=== PATIENT | female | born 1970 | race Caucasian/White ===

== ENCOUNTER 2017-02-11 13:31 | Emergency (ER) | payer SELFPAY ==
[2015-01-20 06:31] VITALS: BMI 26.5
[~2017-02-11 13:31] MED LIST: HYDROCODONE-APA1 TAB PO; TOPAMAX50 MG PO; VENTOLIN HFA18 GM INH
[2017-02-11 14:33] LABS: BASOPHILS 0.4 % (0-2); EOSINOPHILS 2.6 % (0-7); HEMATOCRIT 37.3 % (36.0-48.0); HEMOGLOBIN 12.8 g/dL (12-16); IMMATURE GRANULOCYTES 0.1 % (0-5); LYMPHOCYTES 30.2 % (15-50); MCHC 34.3 g/dL (31.0-37.0); MCV 90.3 fL (80.0-100.0); MEAN PLATELET VOLUME 9.1 fL (7.4-10.4); MONOCYTES 9.8 % (2-11); NEUTROPHILS 56.9 % (40-80); PLATELET COUNT 240 10x3/uL (130-400); RBC 4.13 10x6/uL (4.00-5.40); RDW 12.7 % (11.5-14.5); WBC 6.8 10x3/uL (4.8-10.8)
[2017-02-11 14:46] LABS: ALBUMIN 3.9 g/dL (3.4-5.0); ALKALINE PHOSPHATASE 58 U/L (46-116); ALT (SGPT) 27 U/L (10-68); BILIRUBIN - TOTAL 0.22 mg/dL (0.2-1.3); CALC OSMOLALITY 280 mosm/kg (275-300); CALCIUM 9.3 mg/dL (8.5-10.1); CARBON DIOXIDE 24.5 mmol/L (21.0-32.0); CHLORIDE - SERUM 106 mmol/L (98-107); CREATININE - SERUM 0.8 mg/dL (0.6-1.3); GLUCOSE 92 mg/dL (74-106); POTASSIUM - SERUM 3.7 mmol/L (3.5-5.1); PROTEIN - SERUM 7.3 g/dL (6.4-8.2); SODIUM 141 mmol/L (136-145); UREA NITROGEN 13 mg/dL (7-18); eGFR NON AFRICAN AMERICAN 82 mL/min (90-120)
[2017-02-11 14:55] LABS: CKMB 0.3 U/L (0.0-3.6); CREATINE KINASE 50 UL (21-215)
[2017-02-11 15:03] LABS: TROPONIN-I < 0.017 ng/mL (0.000-0.060)
== END 2017-02-11 17:32 | disposition home or self-care (01) ==
LOC: D.ER 13:31
PROVIDERS: Emergency Medicine
DX: R09.1 Pleurisy (principal); J06.9 Acute upper respiratory infection, unspecified

== ENCOUNTER → 2018-01-01 19:18 | Outpatient (CLI) | payer OTHER ==
[2015-01-20 06:31] VITALS: BMI 26.5
== END | disposition home or self-care (01) ==
LOC: D.MAMMO 11:00
DX: Z12.31 Encounter for screening mammogram for malignant neoplasm of breast (principal)

== ENCOUNTER 2018-01-02 08:09 | Emergency (ER) | payer OTHER ==
[2015-01-20 06:31] VITALS: BMI 26.5
== END 2018-01-02 10:28 | disposition home or self-care (01) ==
LOC: D.ER 08:09
DX: H53.2 Diplopia (principal); R51 Headache

== ENCOUNTER → 2018-01-27 23:57 | Outpatient (CLI) | payer OTHER ==
[2015-01-20 06:31] VITALS: BMI 26.5
== END | disposition home or self-care (01) ==
LOC: D.MAMMO 14:30
DX: R92.8 Other abnormal and inconclusive findings on diagnostic imaging of breast (principal)

== ENCOUNTER 2019-04-29 15:57 | Emergency (ER) | payer OTHER ==
[~2019-04-29] VITALS: Ht 162.6 cm; Wt 77.3 kg
[2019-04-29 16:00] VITALS: Ht 162.6 cm; Wt 77.3 kg
[2019-04-29] MEDS ORDERED: DICLOFENAC SODI50 MG PO (16:02)
[2019-04-29] MEDS ORDERED: FLOMAX0.4 MG PO (16:02)
[2019-04-29 17:21] LABS: APPEARANCE CLEAR (CLEAR); BILIRUBIN NEGATIVE (NEGATIVE); COLOR YELLOW (YELLOW); GLUCOSE NEGATIVE (NEGATIVE); KETONE NEGATIVE (NEGATIVE); NITRITE NEGATIVE (NEGATIVE); PROTEIN NEGATIVE (NEGATIVE); SPECIFIC GRAVITY 1.025 (1.005-1.020); UROBILINOGEN NORMAL (NORMAL)
[2019-04-29 17:22] LABS: BACTERIA FEW /hpf (NONE SEEN); EPITHELIAL CELLS 0-5 /hpf (0-5); RED CELLS - URINE 0-5 /hpf (0-5); WHITE CELLS - URINE OCC /hpf (0-5)
[2019-04-29 18:01] LABS: BASOPHILS 0.3 % (0-2); EOSINOPHILS 0.9 % (0-7); HEMATOCRIT 39.7 % (36.0-48.0); HEMOGLOBIN 13.8 g/dL (12-16); IMMATURE GRANULOCYTES 0.3 % (0-5); LYMPHOCYTES 26.2 % (15-50); MCH 30.9 pg (26.0-34.0); MCHC 34.8 g/dL (31.0-37.0); MEAN PLATELET VOLUME 8.8 fL (7.4-10.4); MONOCYTES 6.4 % (2-11); NEUTROPHILS 65.9 % (40-80); PLATELET COUNT 266 10x3/uL (130-400); RBC 4.46 10x6/uL (4.00-5.40); RDW 12.9 % (11.5-14.5); WBC 11.1 10x3/uL (4.8-10.8)
[2019-04-29 18:13] LABS: APTT 27.7 SECONDS (22.8-39.4); INR 0.99 (0.85-1.17); PROTIME 12.6 SECONDS (11.6-15.0)
[2019-04-29 18:16] LABS: ALBUMIN 4.2 g/dL (3.4-5.0); ALKALINE PHOSPHATASE 66 U/L (46-116); ALT (SGPT) 34 U/L (10-68); BILIRUBIN - TOTAL 0.52 mg/dL (0.2-1.3); CALC OSMOLALITY 278 mosm/kg (275-300); CALCIUM 9.6 mg/dL (8.5-10.1); CARBON DIOXIDE 28.4 mmol/L (21.0-32.0); CHLORIDE - SERUM 101 mmol/L (98-107); GLUCOSE 103 mg/dL (74-106); PROTEIN - SERUM 7.5 g/dL (6.4-8.2); SODIUM 139 mmol/L (136-145); UREA NITROGEN 14 mg/dL (7-18); eGFR NON AFRICAN AMERICAN 63 mL/min (90-120)
[2019-04-29 18:19] LABS: LIPASE 117 U/L (73-393); TROPONIN-I < 0.017 ng/mL (0.000-0.060)
[2019-04-29 20:21] VITALS: BP 141/88
== END 2019-04-29 20:23 | disposition home or self-care (01) ==
LOC: D.ER 15:57
PROVIDERS: Family Medicine
DX: R10.9 Unspecified abdominal pain (principal); R31.9 Hematuria, unspecified

== ENCOUNTER 2020-02-05 05:15 | Day surgery (SDC) | payer OTHER ==
[2020-02-03 15:13] LABS: BASOPHILS 0.4 % (0-2); EOSINOPHILS 1.6 % (0-7); HEMATOCRIT 38.7 % (36.0-48.0); HEMOGLOBIN 12.8 g/dL (12-16); IMMATURE GRANULOCYTES 0.1 % (0-5); LYMPHOCYTES 29.7 % (15-50); MCH 29.8 pg (26.0-34.0); MCHC 33.1 g/dL (31.0-37.0); MEAN PLATELET VOLUME 8.8 fL (7.4-10.4); MONOCYTES 6.4 % (2-11); NEUTROPHILS 61.8 % (40-80); PLATELET COUNT 314 10x3/uL (130-400); WBC 6.9 10x3/uL (4.8-10.8)
[~2020-02-05] VITALS: Ht 162.6 cm; Wt 84.8 kg
[~2020-02-05 05:15] MED LIST changes: +DICLOFENAC SODI50 MG PO; +FLOMAX0.4 MG PO; +HYDROCODON-ACE1 EAC7 PO
[2020-02-05 05:40] VITALS: BP 138/89; BMI 32.1
[2020-02-05 05:58] LABS: HCG URINE NEGATIVE (NEGATIVE)
[2020-02-05 06:03] VITALS: Ht 162.6 cm; Wt 84.8 kg
--- NOTE | 2020-02-05 10:17 | NUR ---
0931-REMOVED IV WITH CATH INTACT,DISPOSED INTO SHARPS,COVERED WITH GUAZE,SECURED WITH MEDIPORE TAPE. REVIEWED POST OP INSTRUCTIONS,PT HAS FOLLOW APPOINTMENT ALREADY MADE. VERBALIZED UNDERSTANDING. VSS.NO DISTRESS, NO N/V. PAIN TOLERABLE AND NORMAL POST PROCEDURE /10 DESCRIBED CRAMPING.
--- NOTE | 2020-02-05 10:20 | NUR ---
0935-PT DRESSED. ESCORTED OUT VIA W/C BY STAFF WITH SPOUSE AWAITING TO DRIVE HOME.
--- NOTE | 2020-02-16 07:14 | OP ---
PATIENT NAME: SOL GRAFF MEDICAL RECORD: [id number] :74 LOCATION:D[facility] ADMISSION DATE: SURGEON: ABAD HANDLEY MD DATE OF OPERATION: 02/05/2020 PREOPERATIVE DIAGNOSIS: Metrorrhagia. POSTOPERATIVE DIAGNOSIS: Metrorrhagia. PROCEDURES: Hysteroscopy and NovaSure endometrial ablation. SPECIMENS: None. FINDINGS: Grossly normal appearing proliferative endometrium. SURGEON: Abad Handley MD ANESTHESIA: General endotracheal. INTRAVENOUS FLUIDS: Per anesthesia record. HYSTEROSCOPIC FLUID LOSS: Approximately 50 cc of 0.9 normal saline. COMPLICATIONS: None apparent. PROCEDURE IN DETAIL: The patient taken to the operating room where general anesthesia was achieved without difficulty. The patient was then prepped and draped in normal sterile fashion in the dorsal lithotomy position in the [facility]. The patient was prepped and draped and the bladder was drained of approximately 200 cc of clear yellow urine. At this point, a Graves speculum was placed into the vagina and the anterior lip of cervix was grasped with a single tooth tenaculum. The patient was sounded to approximately 9.5 cm. At this point, the patient was dilated to approximately 6 mm, at which point, the hysteroscope was introduced into the endometrial canal to confirm depth and position of the cavity. Following survey of the hysteroscope, it was removed and the NovaSure device was then prepared. Depth was calculated to be 6 cm. At this point, the NovaSure machine was calibrated and found to be in good working order. The cervix was then dilated to approximately 9 mm and the NovaSure device was placed into the uterus and deployed with approximately 4.3 cm. Following positioning of the NovaSure ablation device, prechecks were passed times 2 and the patient had approximately 1 minute 50 second burn cycle. The NovaSure device was then turned off and removed using the bow and arrow method. The single-tooth tenaculum was removed with good hemostasis noted from the cervix. No bleeding was noted from the cervical os at this time. The tenaculum was removed. The speculum was removed. The patient tolerated procedure well, transferred to postanesthesia recovery stable without incident. TRANSINT:[id number] Voice Confirmation ID: [id number] DOCUMENT ID: [id number] OPERATIVE REPORT [id number] SOL GRAFF ABAD HANDLEY MD at 0714 CC: [id number] DICTATION DATE: 02/15/20 0631 [facility] ATTENDANT: 02/15/20 1233 [facility] [place] 02/05/20 [place] [id number] [facility] [place] [address]
== END 2020-02-05 09:35 | disposition home or self-care (01) ==
LOC: D.OPS 05:15 → D.PAN 07:30 → D.OPS 07:30 → D.PAN 08:45 → D.OPS 08:45
PROVIDERS: ATTEND Obstetrics & Gynecology
DX: N92.1 Excessive and frequent menstruation with irregular cycle (principal); G43.909 Migraine, unspecified, not intractable, without status migrainosus